=== PATIENT | male | born 1965 | race African-American/Black ===

== ENCOUNTER 2016-05-31 11:47 | Emergency (ER) | payer OTHER ==
--- NOTE | ~2016-05-31 | CR63 ---
[facility] A Service of [facility] & [facility] RADIOLOGY TEXT RESULTS PATIENT: ALEJANDRO ARRINGTON LOCATION: [facility] : 63 UNIT #: [id number] AGE: [address]: ELLE YANG SEX: M ORDER DR: [id number] [facility] [address] [place], [place] [address] [id number] MR#: [id number] Acc #: [id number] NAME: ALEJANDRO ARRINGTON : 1965 SEX: M STUDY DATE/TIME: 05/31/2016 11:30 UNIT: [facility] ROOM: STUDY DESCRIPTION: CR Chest 2 View Attending Physician: Elle Yang Aprn Ordering Physician: Ed Doctor [id number] [facility] Primary Care Physician: Adarsh Tubbs M.D. MEDICAL IMAGING REPORT This report is preliminary unless electronic signature is present EXAM PA and lateral chest 05/31 COMPARISON 06/24/2012 HISTORY Shortness of air beginning 4 days ago. Postop hernia repair. FINDINGS PA and lateral views are obtained. The cardiovascular configuration of the chest is normal and the lungs remain clear. CONCLUSION Stable chest. No active disease. Dictated by... Patrice Fulton M.D. THIS IS AN ELECTRONICALLY VERIFIED REPORT Patrice Fulton M.D. at 05/31/2016 5:04 PM Bruce TD: 05/31/2016 12:48 JOB #: [id number] MEDICAL IMAGING REPORT Page 1 of 1 COPY
--- NOTE | ~2016-05-31 | CT2 ---
[facility] A Service of [facility] & [facility] RADIOLOGY TEXT RESULTS PATIENT: ALEJANDRO ARRINGTON LOCATION: [facility] : 63 UNIT #: [id number] AGE: [address]: ELLE YANG SEX: M ORDER DR: [id number] [facility] [address] [place], [place] [address] [id number] E MR#: [id number] Acc #: [id number] NAME: ALEJANDRO ARRINGTON : 1965 SEX: M STUDY DATE/TIME: 05/31/2016 13:30 UNIT: [facility] ROOM: STUDY DESCRIPTION: CT Abd and Pelv W Cont Attending Physician: Elle Yang Aprn Ordering Physician: Jessica Rueda M.D. Primary Care Physician: Adarsh Tubbs M.D. MEDICAL IMAGING REPORT This report is preliminary unless electronic signature is present EXAM CT of the abdomen and pelvis with contrast INDICATIONS Pain across the abdomen today. The patient had hernia repair on . TECHNIQUE Axial CT images were obtained of the diaphragm through the symphysis pubis following administration of intravenous contrast material. This CT exam was performed with one or more of the following radiation dose reduction techniques: automatic exposure control, adjustment of mA and/or kV according to patient size, and iterative reconstruction. FINDINGS Images through the lung bases are clear. Hyper attenuating structures identified within the gallbladder. This may simply reflect some stones. The possibility that this reflects an enhancing structure is not completely excluded on the basis of the study; gallbladder ultrasound is suggested on a non emergent outpatient basis for further assessment. The spleen appears unremarkable, as are the stomach and proximal small bowel. There are bilateral adrenal nodules with the left measuring up to 1.6 x 1.5 cm and the right measuring up to 2.1 x 1.4 cm. These are incompletely characterized on this single phase examination and remain indeterminate, although statistically they are most likely adenomas. I would suggest further evaluation with adrenal protocol CT or MRI on a non emergent outpatient basis. Patient does appear to have some left renal cysts. Pancreas is within normal limits. Patient is also noted to have an enhancing structure within the right lobe of the liver measuring 1.5 x 1.4 cm. This certainly could reflect a benign lesion such as a hemangioma but again would be better characterized with a multiphase study. There is no STS. [facility] A Service of [facility] RADIOLOGY TEXT RESULTS PATIENT: ALEJANDRO ARRINGTON LOCATION: [facility] : 63 UNIT #: [id number] AGE: [address]: ELLE YANG SEX: M ORDER DR: evidence mechanical bowel obstruction. Patient does have soft tissue stranding seen within the omentum without discrete drainable abscess seen. A small amount of fluid is seen within the patient's umbilical incision, indeterminate. This certainly could reflect a small postoperative seroma. Correlation however with any evidence of infection is suggested. The appendix is visualized and is within normal limits. There is colonic diverticulosis without evidence of diverticulitis. Prostate gland is enlarged. Urinary bladder is within normal limits. Fairly extensive fecal burden is seen throughout the colon. Correlation with any history of constipation is suggested. Review of bony windows does not demonstrate any aggressive osseous abnormalities. IMPRESSION 1. Deep to the patient's umbilical incision, there is a small air containing fluid collection which measures about of 3.2 x 2.0 cm. This certainly could reflect a small postoperative collection given history of recent surgery. I do not see any definite rim enhancement in the presence of gas and it may simply be related again to recent surgery. Certainly correlation with any evidence of infection is suggested. This also some mild stranding seen within the omentum deep to this area, in keeping with history of recent surgery. 2. This patient has an enhancing focus within the right lobe of the liver. This may reflect a benign lesion such as a hemangioma. However, I would suggest further evaluation with MRI in this 50-year-old patient. This also allow for assessment of a potential enhancing focus within the gallbladder. This area in the gallbladder may simply reflect some stones or sludge, but again, MRI could certainly clarify. Ultrasound would be another consideration as well. MRI could also allow for further assessment of bilateral adrenal nodules. Statistically these are most likely benign adenomas but again are incompletely evaluated on a single phase CT. 3. Extensive fecal burden is seen throughout the colon. Correlation with any history of constipation is suggested. 4. Please see the body of the report for any other additional incidental findings. Dictated by... Trina Ho M.D. THIS IS AN ELECTRONICALLY VERIFIED REPORT Trina Ho M.D. at 05/31/2016 4:34 PM AFF/to TD: 05/31/2016 15:59 JOB #: [id number] MEDICAL IMAGING REPORT [facility] A Service of [facility] & [facility] RADIOLOGY TEXT RESULTS PATIENT: ALEJANDRO ARRINGTON [id number] : [birth year] UNIT #: [id number] AGE: [address]: ELLE YANG SEX: M ORDER DR: Page 1 of 1 COPY
[~2016-05-31 11:47] MED LIST: ACETAMINOPHEN650 M3 PO; ASPIRIN81 MG PO; EXFORGE HCT 5-1 EAC1 PO; FLEXERIL10 MG PO; LORTAB 5/500 TA1 TA1 PO; METOPROLOL TAR25 MG PO; NITROGLYCERIN0.4 MG SL; NORVASC PO
[2016-05-31 12:19] LABS: BASOPHIL% 0.3 % (0-2.5); EOSINOPHIL# 0.2 X10e3 (0-0.7); HEMATOCRIT 52.5 % (38.0-50.0); HEMOGLOBIN 17.4 gm/dL (13.0-16.0); LYMPHOCYTE# 2.2 X10e3 (1.0-3.5); LYMPHOCYTE% 18.6 % (17.0-45.0); MEAN CELL VOLUME 89.5 FL (83-96); MEAN CORPUSCULAR HEMOGLOBIN 29.6 PG (28-34); MEAN CORPUSCULAR HGB CONC 33.1 g/dL (30-36); MEAN PLATELET VOLUME 7.8 FL (6.5-11.5); MONOCYTE# 1.2 X10e3 (0-1.0); MONOCYTE% 10.1 % (3.0-12.0); NEUTROPHIL# 8.1 X10e3 (1.5-7.1); PLATELET COUNT 287 X10e3 (140-420); RED BLOOD COUNT 5.87 X10e (3.90-5.60); RED CELL DISTRIBUTION WIDTH 14.2 % (11.0-15.5); WHITE BLOOD COUNT 11.7 X10e3 (4.0-10.5)
[2016-05-31 12:21] LABS: DIFF IND NO
[2016-05-31 12:45] LABS: URINE SOURCE CLEAN CATCH
[2016-05-31 12:59] LABS: ALBUMIN SERUM 4.9 g/dL (3.5-5.0); BILIRUBIN, DIRECT 0.1 mg/dL (0.0-0.2); BILIRUBIN,INDIRECT 0.6 mg/dL (0.0-0.9); BILIRUBIN,TOTAL 0.7 mg/dL (0.2-2.0); BUN/CREATININE RATIO 12.94; CALCIUM SERUM 9.9 mg/dL (8.4-10.2); CREATININE SERUM 1.7 mg/dL (0.6-1.4); POTASSIUM 4.9 mmol/L (3.5-5.1); PROTEIN TOTAL SERUM 8.7 g/dL (6.0-8.3)
[2016-05-31 13:10] LABS: URINE APPEARANCE CLEAR; URINE BILIRUBIN NEG (NEG); URINE BLOOD NEG (NEG); URINE COLOR YELLOW; URINE GLUCOSE NEG (NEG); URINE KETONE TRACE (NEG); URINE LEUKOCYTE ESTERASE NEG (NEG); URINE NITRATE NEG (NEG); URINE PROTEIN 1+ (NEG); URINE SPECIFIC GRAVITY 1.023 (1.003-1.035); URINE UROBILINOGEN 0.2 MG/DL (NEG)
[2016-05-31 13:12] LABS: CULTURE INDICATED? NO; URINE BACTERIA AUWI NEG (NEGATIVE); URINE SQUAMOUS EPITHELIAL CELL NONE SEEN /[HPF]; UWBCS1 AUWI 0-2 (0-5)
[2016-06-01] MEDS ORDERED: ZOFRAN ODT4 MG SL (23:11)
[2016-06-01] MEDS ORDERED: FLEXERIL10 MG PO (23:12)
[2016-06-01] MEDS ORDERED: NORVASC2.5 MG PO (23:12)
[2016-06-01] MEDS ORDERED: LISINOPRIL-HCTZ1 T20 PO (23:12)
== END 2016-05-31 16:20 | disposition home or self-care (01) ==
LOC: CED 11:47
PROVIDERS: Nurse Practitioner Family
DX: R10.84 Generalized abdominal pain (principal); R11.0 Nausea; I10 Essential (primary) hypertension; F17.210 Nicotine dependence, cigarettes, uncomplicated; Z88.0 Allergy status to penicillin
CPT/HCPCS: 36415; 71020; 74177; 80048; 80076; 81003; 82150; 83605; 83690; 85025; 87040; 96361; 96374; 99284; J2405; Q9967

== ENCOUNTER 2016-06-01 23:00 | Emergency (ER) | payer OTHER ==
[2016-06-01] MEDS ORDERED: ZOFRAN ODT4 MG SL (23:11)
[2016-06-01] MEDS ORDERED: FLEXERIL10 MG PO (23:12)
[2016-06-01] MEDS ORDERED: LISINOPRIL-HCTZ1 T20 PO (23:12)
[2016-06-01] MEDS ORDERED: NORVASC2.5 MG PO (23:12)
== END 2016-06-01 23:10 | disposition left against medical advice (07) ==
LOC: CED 23:00
DX: Z53.21 Procedure and treatment not carried out due to patient leaving prior to being seen by health care provider (principal)